=== PATIENT | female | born 1960 | race Caucasian/White ===

== ENCOUNTER 2016-12-09 13:34 | Emergency (ER) | payer MEDICAID, OTHER ==
[~2016-12-09] VITALS: Ht 165.1 cm; Wt 82.5 kg
[~2016-12-09 13:34] MED LIST: D-ME118S6 PO
[2016-12-09 13:39] VITALS: Ht 165.1 cm; Wt 82.5 kg
[2016-12-09] MEDS ORDERED: HDRP454O TOP (14:29)
--- NOTE | 2016-12-09 14:35 | ERD ---
ER Documentation Chief Complaint Date/Time DATE: 12/09/16 TIME: 14:29 Chief Complaint Complains of nose bleed x 2 days HPI Patient is a 56-year-old female who presents to the emergency department with a nosebleed 2 days. Bleeding is now resolved. Last episode was this morning. Episodes last less than 1-2 minutes. Bleeding is controlled with direct pressure. Patient states that the episodes occur at random times throughout the day, including when bending down, or eating. She denies any blood thinner use. Patient denies any shortness of breath, chest pain, diaphoresis, arm pain, leg pain. Patient denies any dizziness or loss of consciousness. Patient denies any fever, chills, nausea, vomiting, cough. Patient denies any trauma. ROS All systems reviewed and are negative except as per history of present illness. Medications Home Meds Active Scripts Hydrophilic Base* (Aquaphor*) 454 Gm-Topical Oint, 1 APPLIC TOP BID, #1 JAR Prov:ELDER VARELA PA-C 12/09/16 Dextromethorphan Hb-Promethazine Hcl (Promethazine DM Syrup) 180 Ml Syrup, 5 ML PO Q6 Y for COUGH, #1 ML Prov:AUGUSTIN BEE PA-C 04/25/15 Allergies Allergies: Coded Allergies: No Known Allergy (Unverified , 12/09/16) PMhx/Soc History of Surgery: No Anesthesia Reaction: No Hx Neurological Disorder: No Hx Respiratory Disorders: No Hx Cardiac Disorders: No Hx Psychiatric Problems: No Hx Miscellaneous Medical Probl: No Hx Alcohol Use: No Hx Substance Use: No Hx Tobacco Use: Yes FmHx Family History: No diabetes Physical Exam Vitals Vital Signs Date Time Temp Pulse Resp B/P Pulse Ox O2 Delivery O2 Flow Rate FiO2 12/09/16 13:39 98.3 91 20 144/73 99 Physical Exam GENERAL: Well-developed, well-nourished female. Appears in no acute distress. HEAD: Normocephalic, atraumatic. No deformities or ecchymosis. EYE: Pupils equal, round, and reactive to light. EOMs intact. No conjunctival pallor. ENT: External ear without any masses or tenderness. Auditory canals clear bilaterally. TM visualized bilaterally, non-erythematous, non-bulging. Oropharynx is pink without any tonsillar erythema or exudates. No uvula deviation. No kissing tonsils. Dried blood noted in right nasal cavity. No active bleeding. No blood in the posterior pharynx. NECK: Supple. No lymphadenopathy or thyromegaly. No meningismus. No JVD. No bruits. Trachea midline. LUNG: Clear to auscultation bilaterally. No rhonchi, wheezing, rales or coarse breath sounds. HEART: Regular rate and rhythm. No murmurs, rubs or gallops. BACK: No midline tenderness. EXTREMITES: Equal pulses bilaterally. No peripheral clubbing, cyanosis or edema. No unilateral leg swelling. NEUROLOGIC: Alert and oriented to person, place and time. Moving all four extremities. 5/5 strength in all extremities. Normal speech. Steady gait. SKIN: Normal color. Warm and dry. No rashes or lesions. Procedures/MDM MEDICAL DECISION MAKING: Shunt is a 56-year-old female who presents with intermittent episodes of epistaxis for the last 2 days. Bleeding has now resolved. No active bleeding. She denied blood thinner use. Vital signs were reviewed. Patient is afebrile. Patient was not hypoxic. Patient was hemodynamically stable. ENT exam showed dried blood in the right nasal mucosa. No signs of posterior bleed. At this time , the patients presentation is most consistent with anterior epistaxis. Low suspicion for posterior epistaxis or nasal trauma. Low suspicion for anemia. PRESCRIPTION: Aquaphor DISCHARGE: At this time, patient is stable for discharge and outpatient management. I advised the patient to avoid nose picking. Patient given nasal clamp for further episodes. I have instructed the patient to follow-up with his/her primary care physician in 1-2 days. I have discussed with the patient the possibility of needing to see a ENT specialist for further workup and management if symptoms persist. I have instructed the patient to promptly return to the ER for any new or worsening symptoms including increased pain, fever, nausea, vomiting, weakness or LOC. The patient and/or family expressed understanding of and agreement with this plan. All questions were answered. Home care instructions were provided. Departure Diagnosis: Primary Impression: Epistaxis Condition: Stable Patient Instructions: Epistaxis (Adult) Referrals: DEEPALI ORDOÑEZ MD,PHIL OROZCO,MELISSA HOLLOWAY,LAVERNE HARP M.D., MD,LAVERNE [address] [facility] YOU HAVE RECEIVED A MEDICAL SCREENING EXAM AND THE RESULTS INDICATE THAT YOU DO NOT HAVE A CONDITION THAT REQUIRES URGENT TREATMENT IN THE EMERGENCY DEPARTMENT. FURTHER EVALUATION AND TREATMENT OF YOUR CONDITION CAN WAIT UNTIL YOU ARE SEEN IN YOUR DOCTORS OFFICE WITHIN THE NEXT 1-2 DAYS. IT IS YOUR RESPONSIBILITY TO MAKE AN APPOINTMENT FOR FOLOW-UP CARE. IF YOU HAVE A PRIMARY DOCTOR --you should call your primary doctor and schedule an appointment IF YOU DO NOT HAVE A PRIMARY DOCTOR YOU CAN CALL OUR PHYSICIAN REFERRAL HOTLINE AT IF YOU CAN NOT AFFORD TO SEE A PHYSICIAN YOU CAN CHOSE FROM THE [facility]LLOW[facility] [address] [facility] [address] [facility] [address] [facility] [address] [facility] [address] [facility] [address] [facility] YOU HAVE RECEIVED A MEDICAL SCREENING EXAM AND THE RESULTS INDICATE THAT YOU DO NOT HAVE A CONDITION THAT REQUIRES URGENT TREATMENT IN THE EMERGENCY DEPARTMENT. FURTHER EVALUATION AND TREATMENT OF YOUR CONDITION CAN WAIT UNTIL YOU ARE SEEN IN YOUR DOCTORS OFFICE WITHIN THE NEXT 1-2 DAYS. IT IS YOUR RESPONSIBILITY TO MAKE AN APPOINTMENT FOR FOLOW-UP CARE. IF YOU HAVE A PRIMARY DOCTOR --you should call your primary doctor and schedule and appointment IF YOU DO NOT HAVE A PRIMARY DOCTOR YOU CAN CALL OUR PHYSICIAN REFERRAL HOTLINE AT . IF YOU CAN NOT AFFORD TO SEE A PHYSICIAN YOU CAN CHOSE FROM THE FOLLOWING [facility] INSTITUTIONS: [facility] [address] [place] [address] [facility] [address] [place] [address] [facility] [address] [place] [address] Additional Instructions: Call your primary care doctor TOMORROW for an appointment during the next 1-2 days.See the doctor sooner or return here if your condition worsens before your appointment time. If persistent bleeding occurs, patient may need to follow with ENT specialist for further management. See referral list. ELDER VARELA PA-C Dec 09, 2016 14:35
== END 2016-12-09 19:32 | disposition home or self-care (01) ==
LOC: E/R 13:34
DX: R04.0 Epistaxis (principal); Z87.891 Personal history of nicotine dependence
CPT/HCPCS: 99283

== ENCOUNTER 2016-12-28 10:36 | Emergency (ER) | payer MEDICAID ==
[~2016-12-28] VITALS: Wt 75.0 kg
[~2016-12-28 10:36] MED LIST changes: +HDRP454O TOP
[2016-12-28] MEDS ORDERED: PROM5SYR2 PO (11:56)
[2016-12-28] MEDS ORDERED: IBUP-1542 PO (11:56)
[2016-12-28] MEDS ORDERED: ALBU18HF INHALATION (11:56)
[2016-12-28] MEDS ORDERED: PRED20TA PO (11:56)
--- NOTE | 2016-12-28 12:00 | ERD ---
ER Documentation Chief Complaint Date/Time DATE: 12/28/16 TIME: 11:58 Chief Complaint cough and congestion with sore throat for the past few days. HPI This 56-year-old female presents with cough congestion and sore throat for last 3 days. She has difficulty sleeping due to cough. She has no productive sputum. She denies fevers. She has of vomiting, abdominal pain, diarrhea, neck stiffness, rashes. She denies chest pain per ROS All systems reviewed and are negative except as per history of present illness. Medications Home Meds Active Scripts Ibuprofen* (Motrin*) 600 Mg Tab, 600 MG PO Q6, #15 TAB Prov:ALEC HARRINGTON MD 12/28/16 Promethazine HCl/Codeine (Prometh-Codein 6.25-10 mg/5 ml) 5 Ml Syrup, 5 ML PO QID for 5 Days 4 ounces Prov:ALEC HARRINGTON MD 12/28/16 Albuterol Sulfate* (Ventolin HFA*) 18 Gm Hfa.aer.ad, 2 PUFF INHALATION Q4H, #1 INHALER Prov:ALEC HARRINGTON MD 12/28/16 Prednisone* (Prednisone*) 20 Mg Tab, 40 MG PO DAILY for 4 Days, TAB Prov:ALEC HARRINGTON MD 12/28/16 Hydrophilic Base* (Aquaphor*) 454 Gm-Topical Oint, 1 APPLIC TOP BID, #1 JAR Prov:ELDER VARELA PA-C 12/09/16 Dextromethorphan Hb-Promethazine Hcl (Promethazine DM Syrup) 180 Ml Syrup, 5 ML PO Q6 Y for COUGH, #1 ML Prov:AUGUSTIN BEE PA-C 04/25/15 Allergies Allergies: Coded Allergies: No Known Allergy (Unverified , 12/09/16) PMhx/Soc History of Surgery: No Anesthesia Reaction: No Hx Neurological Disorder: No Hx Respiratory Disorders: No Hx Cardiac Disorders: No Hx Psychiatric Problems: No Hx Miscellaneous Medical Probl: No Hx Alcohol Use: No Hx Substance Use: No Hx Tobacco Use: Yes Physical Exam Vitals Vital Signs Date Time Temp Pulse Resp B/P Pulse Ox O2 Delivery O2 Flow Rate FiO2 12/28/16 10:43 99.0 97 21 124/71 98 Physical Exam Const: [] Alert, [id number], speaking complete sentences Head: Atraumatic Eyes: Normal Conjunctiva ENT: Normal External Ears, Nose and Mouth. TMs and oropharynx normal. Neck: Full range of motion..~ No meningismus. Resp: Clear to auscultation bilaterally. Noticeable dry cough with slight increased expiratory phase. Cardio: Regular rate and rhythm, no murmurs Abd: Soft, non tender, non distended. Normal bowel sounds Skin: No petechiae or rashes Back: No midline or flank tenderness Ext: No cyanosis, or edema Neur: Awake and alert Psych: Normal Mood and Affect Procedures/MDM Patient presents with URI symptoms and sore throat for last 3 days. Symptoms are suggestive of very mild wheeze. She may have influenza type illness. She will be treated with promethazine with codeine, short course prednisone and Ventolin. There is no evidence of respiratory distress, hypoxemia or cardiac type chest pain. The patient was stable with no new complaints during the ER course. Clinically, there is no current evidence to suggest meningitis, sepsis, acute abdomen, pneumonia, acute coronary syndrome, pulmonary embolism, or any other emergent condition appearing to require further evaluation or hospitalization. The patient should certainly return for any new or worsening symptoms per the aftercare instructions. They should otherwise follow-up with her primary care doctor for reevaluation this week. Departure Diagnosis: Primary Impression: Upper respiratory infection URI type: unspecified URI Qualified Code: J06.9 - Upper respiratory tract infection, unspecified type Condition: Stable Patient Instructions: Uri, Viral W/ Wheezing (Adult) Additional Instructions: Suspect influenza type illness. Recheck for new or worsening symptoms or primary care doctor. ALEC HARRINGTON MD Dec 28, 2016 11:59
== END 2016-12-28 13:08 | disposition home or self-care (01) ==
LOC: FTE 10:36
DX: J06.9 Acute upper respiratory infection, unspecified (principal); Z87.891 Personal history of nicotine dependence
CPT/HCPCS: 99284

== ENCOUNTER 2018-01-04 08:59 | Emergency (ER) | END 2018-01-04 10:09 | disposition home or self-care (01) ==

== ENCOUNTER 2018-01-16 08:41 | Emergency (ER) | END 2018-01-16 11:00 | disposition home or self-care (01) ==